=== PATIENT | female | born 1990 | race Caucasian/White ===

== ENCOUNTER → 2017-09-12 | Outpatient (CLI) | payer OTHER ==
[~2017-09-12] VITALS: Ht 172.7 cm; Wt 104.5 kg
[~2017-09-12] MED LIST: ADDERALL XR 1515 MG PO; ADDERALL XR 2020 MG PO; ADDERALL10 MG PO; ADDERALL30 MG PO; ADVAIR 100/501 DISK IH; ADVAIR IH; AMBIEN5 MG PO; ANECREAM30 GM TP; AUGMENTIN500 MG PO; Adderall PO; Adderall XR PO; COLACE100 MG PO; ENDOCET 5-3251 EACH PO; ESSENTIAL DAIL1 EACH PO; FEOSOL325 MG PO; FLEXERIL10 MG PO; IBUPROFEN800 MG PO; LABETALOL HCL200 MG PO; LAMICTAL XR200 MG PO; LAMICTAL XR50 MG PO; LAMICTAL100 MG PO; LAMICTAL200 MG PO; LAMICTAL25 MG PO; LOESTRIN FE 1.1 EACH PO; LOESTRIN FE PO; LaMICtal XR PO; MOTRIN800 MG PO; Motrin PO; NORCO 5/3251 TABLET PO; Natalcare Rx,Pramile PO; OXYCODONE-APAP1 EACH PO; PERCOCET 5/31 TABLET PO; PRENATAL TABLE1 EAC3 PO; PRENATAL VITAM1 EAC1 PO; PROAIR HFA8.5 GM IH; Percocet 5/325,Endoc PO; SAPHRIS10 MG SL; SEROQUEL XR200 MG PO; SEROQUEL XR400 MG PO; SEROQUEL200 MG PO; SEROQUEL50 MG PO; Seroquel PO; TYLENOL EXTRA500 MG PO; WOMEN'S DAILY1 EAC4 PO; ZOFRAN ODT4 MG PO; ZOFRAN4 MG PO; ZOLOFT50 MG PO; [UNRECOGNIZED DRUG - OTHER] PO
[2017-09-12 09:03] VITALS: BP 156/87
== END | disposition home or self-care (01) ==
LOC: IVINF 08:54
DX: Z31.82 Encounter for Rh incompatibility status (principal); Z3A.00 Weeks of gestation of pregnancy not specified; Z67.91 Unspecified blood type, Rh negative
CPT/HCPCS: 96372; J2790

== ENCOUNTER 2017-12-02 05:47 | Inpatient (IN) | payer OTHER ==
[~2017-12-02] VITALS: Ht 172.7 cm; Wt 118.1 kg
[~2017-12-02 05:47] MED LIST changes: +CATAPRES0.1 MG PO; +TOPAMAX50 MG PO
[2017-12-02 06:05] VITALS: BP 155/97
[2017-12-02 06:17] LABS: BASOPHIL (%) 0.2 % (0-1); EOSINOPHIL (%) 1.1 % (0-5); EOSINOPHIL COUNT 0.2 K/uL (0-0.3); HEMATOCRIT 39.4 % (36.0-46.0); HEMOGLOBIN 13.4 G/DL (11.9-15.5); IMMATURE GRANULOCYTE (%) 1.1 % (0.0-0.7); LYMPHOCYTE (%) 21.2 % (15-42); LYMPHOCYTE COUNT 2.8 K/uL (1.0-2.8); MCV 88.3 FL (83-99); MONOCYTE COUNT 1.1 K/uL (0-0.8); NEUTROPHIL (%) 68.4 % (45-76); NEUTROPHIL COUNT 9.1 K/uL (1.8-6.4); PLATELET COUNT 224 K/uL (156-360); RBC DIS.WIDTH-CV 13.5 % (11.8-14.6); RBC DIS.WIDTH-SD 43.6 % (39-53); RED BLOOD COUNT 4.46 M/uL (3.80-5.20); WHITE BLOOD COUNT 13.3 K/uL (4.1-10.2)
[2017-12-02 06:29] LABS: AMPHETAMINE PRESUMPTIVE POSITIVE (500 ng/mL); BARBITURATES NEGATIVE (200 ng/mL); BENZODIAZEPINES NEGATIVE (150 ng/mL); BUPRENORPHINE NEGATIVE (10 ng/mL); COCAINE NEGATIVE (150 ng/mL); METHADONE NEGATIVE (200 ng/mL); METHAMPHETAMINE NEGATIVE (500 ng/mL); OPIATES (MORPHINE) NEGATIVE (100 ng/mL); OXYCODONE NEGATIVE (100 ng/mL); PHENCYCLIDINE NEGATIVE (25 ng/mL); PROPOXYPHENE NEGATIVE (300 ng/mL); THC CANNABINOIDS NEGATIVE (50 ng/mL); TRICYCLIC ANTIDEPRESSANTS NEGATIVE (300 ng/mL)
[2017-12-02 06:45] LABS: ALBUMIN 3.3 G/DL (3.2-4.8); ALKALINE PHOSPHATASE 131 IU/L (3-129); ALT (GPT) 18 IU/L (3-49); AST (GOT) 19 IU/L (2-34); CHLORIDE 109 MEQ/L (99-109); CREATININE 0.5 MG/DL (0.6-1.3); GFR ESTIMATE (CALCULATED) > 59 mL/min/; GLUCOSE 107 mg/dL (70-99); SODIUM 138 MEQ/L (136-147); TOTAL BILIRUBIN 0.2 MG/DL (0.0-1.0); TOTAL PROTEIN 6.3 G/DL (6.4-8.3); UREA NITROGEN (BUN) 10 mg/dL (9-23)
[2017-12-02 06:46] VITALS: BP 154/90
[2017-12-02 07:18] LABS: LACTATE DEHYDROGENASE 148 IU/L (20-246)
[2017-12-02 10:19] LABS: HEMOGLOBIN A1c (GLYCOHEMOGLOB) 5.4 % (Below 5.7)
[2017-12-02 13:16] LABS: HEPATITIS B SURFACE ANTIGEN Nonreactive; HIV-1/2 AB/AG COMBO Nonreactive
[2017-12-02 13:36] VITALS: BP 135/81
[2017-12-02 14:02] LABS: TREPONEMA ANTIBODY NEGATIVE (NEGATIVE)
[2017-12-02 19:17] VITALS: BP 124/59
[2017-12-02 20:29] VITALS: BP 124/59
[2017-12-02 21:48] VITALS: BP 117/70
[2017-12-03 04:45] VITALS: BP 98/56
[2017-12-03 07:18] LABS: BASOPHIL (%) 0.2 % (0-1); EOSINOPHIL COUNT 0.1 K/uL (0-0.3); HEMATOCRIT 24.8 % (36.0-46.0); LYMPHOCYTE (%) 27.6 % (15-42); LYMPHOCYTE COUNT 3.7 K/uL (1.0-2.8); MCH 29.6 PG (29.0-34.0); MCHC 33.1 G/DL (30.0-36.0); MCV 89.5 FL (83-99); MONOCYTE (%) 7.3 % (3-12); NEUTROPHIL (%) 62.9 % (45-76); NEUTROPHIL COUNT 8.3 K/uL (1.8-6.4); PLATELET COUNT 179 K/uL (156-360); RBC DIS.WIDTH-CV 13.5 % (11.8-14.6); RBC DIS.WIDTH-SD 44.3 % (39-53); WHITE BLOOD COUNT 13.3 K/uL (4.1-10.2)
[2017-12-03 07:19] LABS: HEMOGLOBIN 8.2 G/DL (11.9-15.5); RED BLOOD COUNT 2.77 M/uL (3.80-5.20)
[2017-12-03 08:15] VITALS: BP 98/49
[2017-12-03 10:44] VITALS: BP 135/73
[2017-12-03 15:05] VITALS: BP 138/72
[2017-12-03 19:32] VITALS: BP 131/73
[2017-12-03 23:31] VITALS: BP 122/64
[2017-12-04 04:33] VITALS: BP 110/58
[2017-12-04] MEDS ORDERED: FEOSOL325 MG PO (10:28)
[2017-12-04] MEDS ORDERED: IBUPROFEN800 MG PO (10:28)
[2017-12-04] MEDS ORDERED: ENDOCET 5-3251 EACH PO (10:28)
[2017-12-04 10:49] VITALS: BP 135/80
== END 2017-12-04 17:22 | disposition home or self-care (01) | DRG 765 ==
LOC: 2WEST 05:47 → 2SOUTH 15:12 → 2WEST 12-04 17:22
PROVIDERS: Obstetrics & Gynecology
PROC: 10D00Z1 Extraction of Products of Conception, Low, Open Approach (ICD-10-PCS; principal; 2017-12-02)
DX: O34.211 Maternal care for low transverse scar from previous cesarean delivery (principal); O69.81X0 Labor and delivery complicated by cord around neck, without compression, not applicable or unspecified; O99.02 Anemia complicating childbirth; D62 Acute posthemorrhagic anemia; O24.429 Gestational diabetes mellitus in childbirth, unspecified control; O13.4 Gestational [pregnancy-induced] hypertension without significant proteinuria, complicating childbirth; O99.52 Diseases of the respiratory system complicating childbirth; J45.909 Unspecified asthma, uncomplicated; O99.62 Diseases of the digestive system complicating childbirth; K21.9 Gastro-esophageal reflux disease without esophagitis; O99.344 Other mental disorders complicating childbirth; F31.9 Bipolar disorder, unspecified; F90.2 Attention-deficit hyperactivity disorder, combined type; O99.284 Endocrine, nutritional and metabolic diseases complicating childbirth; E55.9 Vitamin D deficiency, unspecified; O99.214 Obesity complicating childbirth; E66.9 Obesity, unspecified; Z68.30 Body mass index [BMI] 30.0-30.9, adult; Z91.14 Patient's other noncompliance with medication regimen; Z87.891 Personal history of nicotine dependence; Z88.1 Allergy status to other antibiotic agents; Z3A.39 39 weeks gestation of pregnancy; Z37.0 Single live birth
CPT/HCPCS: 80053; 82948; 83030; 83036; 83615; 84550; 84999; 85025; 86762; 86780; 86850; 86900; 86901; 87340; 87389; 88307; 99202; J0131; J0690; J1100; J1170; J1885; J2274; J2405; J2550; J2590; J2790; J7120